=== PATIENT | female | born 1950 | race Caucasian/White ===

== ENCOUNTER 2020-12-22 20:09 | Inpatient (IN) | payer MEDICARE, OTHER ==
[~2020-12-22] VITALS: Ht 157.5 cm; Wt 81.6 kg
[2020-12-22 20:24] LABS: BASOPHILS # (AUTO) 0.1 K/uL (0.0-0.2); BASOPHILS % (AUTO) 1.4 % (0.0-2.0); EOSINOPHILS % (AUTO) 2.2 % (0.0-6.0); HEMATOCRIT 41 % (33-45); HEMOGLOBIN 14.3 g/dL (11.5-14.8); LYMPHOCYTES # (AUTO) 3.2 K/uL (0.8-4.8); LYMPHOCYTES % (AUTO) 32.2 % (20.0-44.0); MEAN CORPUSCULAR HGB CONC 35 g/dl (31.0-36.0); MEAN CORPUSCULAR VOLUME 88 fL (82-100); MONOCYTES # (AUTO) 0.8 K/uL (0.1-1.30); MONOCYTES % (AUTO) 7.9 % (2.0-12.0); NEUTROPHILS # (AUTO) 5.5 K/uL (1.8-8.9); NEUTROPHILS % (AUTO) 56.3 % (43.0-81.0); PLATELET COUNT (AUTO) 140 K/uL (150-450); RED BLOOD CELL COUNT(AUTO) 4.67 MIL/uL (4.0-5.2); WHITE BLOOD COUNT (AUTO) 9.8 K/uL (4.3-11.0)
[2020-12-22] MEDS ORDERED: DILTIAZEM HCL 25 MG IV ONE (20:28)
[2020-12-22] MEDS ORDERED: DILTIAZEM HCL 50 MG IV IV ONE (20:30)
[2020-12-22 20:35] LABS: CARBON DIOXIDE 26 mmol/L (21-32); CHLORIDE 107 mmol/L (98-107); CREATININE 1.1 mg/dL (0.6-1.3); GLUCOSE 186 mg/dL (74-106); POTASSIUM 4.2 mmol/L (3.5-5.1); SODIUM SERUM 145 mmol/L (136-145); UREA NITROGEN, BLOOD 29 mg/dL (7-18)
--- NOTE | 2020-12-22 20:35 | NUR ---
YENIFER FROM HOME TO ER BED 5. AAOX4. NOT IN RESP DISTRESS, BREATHING EVEN AND UNLABORED. AMBULATORY. BROUGHT IN PALPITATION. DENIES CP. PT VERBALIZES THAT SHE IS AWAITING FOR IMPLANTABLE DEVICE BUT DOES NOT KNOW WHAT EXACTLY IN THE NEXT FEW WEEKS. PT WAS NOTED AFIB RVR IN THE 130-140. PT IS ON MONITOR. EKG WAS AT THE BEDSIDE. WAS A THE BEDSIDE FOR EVAL. ORDERS RECEIVED, NOTED AND CARRIED OUT. IV LINE PRESENT ON THE L HAND 20G. BLOOD DRAWN. WILL CONTINUE TO MONITOR
--- NOTE | 2020-12-22 21:07 | NUR ---
made aware of hr 114. Continue to monitor/
--- NOTE | 2020-12-22 21:07 | NUR ---
Ferny bradley in [facility] - 12/22/20 at 2110 by [facility] xray at bedside
--- NOTE | 2020-12-22 21:55 | NUR ---
REPROT GIVEN TO SHARATH FLAHERTY FOR MYAUR
--- NOTE | 2020-12-22 22:05 | NUR ---
RN OPENING NOTE ADMIT 70 YEAR OLD CHINESE FEMALE TO [facility] UNIT ON TELE MONITORING,ALERT ORIENTED X4 CHINESE SPEAKING ON 2 L OXYGEN VIA NASAL CANNULA,O2: 97% IV SITE IN ON LEFT HAND #20 G INTACT PATENT AMBULATORY CONTINENT TO BOWEL/BLADDER SAFETY MEASURE IMPLEMENT BED IN LOW POSITION AND LOCKED,CALL LIGHT WITHIN REACH CONTINUE TO MONITOR.
--- NOTE | 2020-12-22 22:08 | NUR ---
PT TRANSPORTED TO UNIT ON GURNEY WITH EMT AND RN AT BEDSIDE W/ ACLS PROTOCOL. NAD NOTED DURING TRANSPORT.
--- NOTE | 2020-12-22 22:08 | NUR ---
PT AMBULATED WITH MIN ASSIST FROM GURNEY TO BED ON STEADY GAIT
[2020-12-22] MEDS ORDERED: ACETAMINOPHEN 325 MG TABLET PO PRN (23:00)
[2020-12-22] MEDS ORDERED: ONDANSETRON HCL/PF 4 MG/2 ML VIAL IVP PRN (23:00)
[2020-12-22] MEDS ORDERED: ZOLPIDEM TARTRATE 5 MG TABLET PO PRN (23:00)
[2020-12-22] MEDS ORDERED: DEXTROSE 50%-WATER 50 ML DISP.SYRIN IV PRN (23:00)
[2020-12-22] MEDS ORDERED: Z GUARD REMEDY 2 OZ OINT TP PRN (23:00)
[2020-12-23] VITALS (7 sets, daily range): BP systolic 139–177; BP diastolic 63–97
--- NOTE | 2020-12-23 00:30 | NUR ---
RN NOTE REPORT GIVEN TO CYRUS EARLY FOR CONTINUATION OF CARE.
--- NOTE | 2020-12-23 00:40 | NUR ---
SVP MARKETING NOTES RECEIVED ENDORSEMENT FROM REYNOLD EARLY PT IN STABLE CONDITION. WILL CONTINUE TO MONITOR.
[2020-12-23 06:53] LABS: BASOPHILS % (AUTO) 0.5 % (0.0-2.0); EOSINOPHILS % (AUTO) 3.3 % (0.0-6.0); HEMATOCRIT 38 % (33-45); LYMPHOCYTES # (AUTO) 2.7 K/uL (0.8-4.8); LYMPHOCYTES % (AUTO) 35.5 % (20.0-44.0); MEAN CORPUSCULAR HGB CONC 34 g/dl (31.0-36.0); MEAN CORPUSCULAR VOLUME 89 fL (82-100); MONOCYTES # (AUTO) 0.7 K/uL (0.1-1.30); MONOCYTES % (AUTO) 8.7 % (2.0-12.0); NEUTROPHILS # (AUTO) 3.9 K/uL (1.8-8.9); PLATELET COUNT (AUTO) 120 K/uL (150-450); RED BLOOD CELL COUNT(AUTO) 4.25 MIL/uL (4.0-5.2); WHITE BLOOD COUNT (AUTO) 7.6 K/uL (4.3-11.0)
[2020-12-23 07:42] LABS: ALBUMIN 3.3 g/dL (3.4-5.0); BILIRUBIN,TOTAL 0.4 mg/dL (0.2-1.0); CALCIUM, SERUM 8.5 mg/dL (8.5-10.1); MAGNESIUM 1.6 mg/dL (1.8-2.4); PHOSPHORUS 3.6 mg/dL (2.5-4.9); POTASSIUM 3.4 mmol/L (3.5-5.1); TOTAL PROTEIN, SERUM 6.2 g/dL (6.4-8.2)
--- NOTE | 2020-12-23 07:44 | NUR ---
LABORATORY AIDE NOTES ALERT ORIENTED X4 WEST SPEAKING ON 2 L OXYGEN VIA NASAL CANNULA,O2: 97% IV SITE IN ON LEFT HAND #20 G INTACT PATENT AMBULATORY CONTINENT TO BOWEL/BLADDER SAFETY MEASURE IMPLEMENT BED IN LOW POSITION AND LOCKED,CALL LIGHT WITHIN ENDORSE CARE TO DAY SHIFT NURSE.
[2020-12-23 07:55] LABS: THYROID STIMULATING HORMONE 1.474 uIU/mL (0.358-3.74)
[2020-12-23] MEDS: BLOOD SUGAR DIAGNOSTIC 1 EACH STRIP IN SCH ×4 (08:18→21:52)
[2020-12-23] MEDS: INSULIN LISPRO/ASPART 100 UNIT/ML CARTRIDGE SQ SCH ×3 (08:20→18:49)
[2020-12-23] MEDS: INSULIN REGULAR, HUMAN 100 UNIT/ML 3 ML VIAL SQ PRN ×3 (08:22→22:01)
[2020-12-23] MEDS: METOPROLOL TARTRATE 50 MG TABLET PO SCH ×2 (08:28→21:47)
[2020-12-23] MEDS: ASPIRIN EC 81 MG TABLET.DR PO SCH (08:28)
[2020-12-23] MEDS: LOSARTAN POTASSIUM 25 MG TABLET PO SCH (08:28)
[2020-12-23] MEDS: PANTOPRAZOLE 40 MG TABLET.DR PO SCH (08:28)
[2020-12-23] MEDS: Magnesium 1GM/D5W 100ML PREMIX 100 ML IV SCH ×2 (09:54→11:16)
[2020-12-23] MEDS ORDERED: POTASSIUM CHLORIDE 20 MEQ TAB.PRT.SR PO SCH (10:00)
[2020-12-23] MEDS ORDERED: METF-866 PO (10:56)
[2020-12-23] MEDS ORDERED: JENTADUETO PO (10:56)
[2020-12-23] MEDS ORDERED: HYDR-4076 PO (10:56)
[2020-12-23] MEDS ORDERED: AMLO-213 PO (10:56)
[2020-12-23] MEDS ORDERED: ASPI-1420 PO (10:56)
[2020-12-23] MEDS ORDERED: CLON0.1T PO (10:56)
[2020-12-23] MEDS ORDERED: COLC0.6T67 PO (10:56)
[2020-12-23] MEDS ORDERED: ZOLP10TA2 PO (10:56)
[2020-12-23] MEDS ORDERED: INSU100I24 SQ (10:56)
[2020-12-23] MEDS ORDERED: HYDR12.55 PO (10:56)
[2020-12-23] MEDS ORDERED: ALPR0.5T8 PO (10:56)
[2020-12-23] MEDS ORDERED: IBUP-1955 PO (10:56)
[2020-12-23] MEDS ORDERED: PRAV20TA4 PO (10:56)
[2020-12-23] MEDS ORDERED: ERGO500093 PO (10:56)
[2020-12-23] MEDS ORDERED: METO25TA4 PO (10:56)
[2020-12-23] MEDS ORDERED: ICOS1CAP PO (10:56)
[2020-12-23] MEDS ORDERED: EZET10TA32 PO (10:56)
[2020-12-23] MEDS ORDERED: GLIM2TAB31 PO (10:56)
[2020-12-23] MEDS ORDERED: OMEP1PAC7 PO (10:56)
[2020-12-23] MEDS ORDERED: FLUO120C4 TP (10:56)
[2020-12-23] MEDS ORDERED: BENA1TAB18 PO (10:56)
[2020-12-23] MEDS ORDERED: LOSA100T31 PO (10:56)
[2020-12-23] MEDS ORDERED: TRAM50TA2 PO (10:56)
[2020-12-23] MEDS ORDERED: RIVAROXABAN 10 MG TABLET PO SCH (17:00)
--- NOTE | 2020-12-23 19:30 | NUR ---
RN NOTE RECEIVED PATIENT IN BED, AO X 4, IN NO S/SX OF ACUTE DISTRESS AT THIS TIME. BREATHING EVEN AND UNLABORED, SATURATION AT 96% ON ROOM AIR, SR ON THE MONITOR, HR IS 64. NOTED IV SITE AT LHAND 20G, PATENT AND FLUSHING WELL, NO S/S OF INFECTION OR INFILTRATION. SAFETY MEASURES IMPLEMENTED. PATIENT BED ALARM IS ON. HEAD OF BED ELEVATED. BED IS LOCKED, IN LOWEST POSITION AND SIDE RAILS UP. CALL LIGHT WITHIN REACH OF THE PATIENT. WILL CONTINUE TO MONITOR AND REASSESS FOR ANY CHANGES.
[2020-12-23] MEDS ORDERED: ATORVASTATIN 10 MG TABLET PO SCH (22:00)
[2020-12-24] VITALS: BP 130/65
[2020-12-24 00:09] VITALS: BP 130/65
[2020-12-24 04:00] VITALS: BP 146/81
[2020-12-24 04:26] VITALS: BP 146/81
[2020-12-24] MEDS: BLOOD SUGAR DIAGNOSTIC 1 EACH STRIP IN SCH (07:43)
[2020-12-24 07:44] LABS: CALCIUM, SERUM 8.3 mg/dL (8.5-10.1); CREATININE 0.9 mg/dL (0.6-1.3); MAGNESIUM 1.9 mg/dL (1.8-2.4); POTASSIUM 3.6 mmol/L (3.5-5.1)
--- NOTE | 2020-12-24 07:46 | NUR ---
RN OPENING NOTES; RECEIVED PT IN BED, IN SUPINE POS. A/OX4, NO C/O PAIN, NO DISTRESS NOTED. PT 02 SAT 100% IN ROOM AIR. BREATHING EVEN AND UNLABORED. NOTED IV SITE AT L HAND 20G, PATENT AND FLUSHING WELL, NO S/S OF INFECTION OR INFILTRATION. SAFETY MEASURES IMPLEMENTED. PATIENT BED ALARM IS ON. LOCKED, AND IN LOWEST POSITION. WILL CONTINUE TO MONITOR.
[2020-12-24 08:00] VITALS: BP 155/78
[2020-12-24] MEDS: ASPIRIN EC 81 MG TABLET.DR PO SCH (08:04)
[2020-12-24] MEDS: LOSARTAN POTASSIUM 25 MG TABLET PO SCH (08:04)
[2020-12-24 08:05] VITALS: BP 155/78
[2020-12-24] MEDS: METOPROLOL TARTRATE 50 MG TABLET PO SCH (08:05)
[2020-12-24] MEDS: PANTOPRAZOLE 40 MG TABLET.DR PO SCH (08:05)
[2020-12-24] MEDS: INSULIN LISPRO/ASPART 100 UNIT/ML CARTRIDGE SQ SCH (08:06)
[2020-12-24] MEDS: INSULIN REGULAR, HUMAN 100 UNIT/ML 3 ML VIAL SQ PRN (08:08)
--- NOTE | 2020-12-24 11:10 | NUR ---
RN NOTE DR. BETH SPOKE WITH PATIENT'S DAUGHTER AND EDUCATED HER ON PATIENT'S SITUATION, NEW PRESCRIPTIONS, AND FOLLOWING UP WITH HER PRIMARY CARE PROVIDER.
--- NOTE | 2020-12-24 12:16 | NUR ---
PT IN STABLE CONDITION. NO C/O PAIN, OR DISTRESS NOTED. PT AMBULATORY A/OX3. V/S WITHIN NORMAL LIMITS. DISCHARGE TEACHING DONE, PT STATES UNDERSTANDING. PT DISCHARGED TO HOME. PICKED UP BY HER SON, ASSISTED BY JOSS CASTANEDA.
== END 2020-12-24 12:09 | disposition home health service (06) | DRG 308 ==
LOC: ER 20:11 → TELE1 21:33
PROVIDERS: ADMIT Nurse Practitioner Acute Care; ATTEND Nurse Practitioner Acute Care
DX: I48.91 Unspecified atrial fibrillation (principal); N17.0 Acute kidney failure with tubular necrosis; I50.31 Acute diastolic (congestive) heart failure; D68.59 Other primary thrombophilia; E44.0 Moderate protein-calorie malnutrition; E11.9 Type 2 diabetes mellitus without complications; M19.90 Unspecified osteoarthritis, unspecified site; F41.9 Anxiety disorder, unspecified; E87.6 Hypokalemia; E83.42 Hypomagnesemia; E78.5 Hyperlipidemia, unspecified; E66.9 Obesity, unspecified; Z68.33 Body mass index [BMI] 33.0-33.9, adult; I35.1 Nonrheumatic aortic (valve) insufficiency; I11.0 Hypertensive heart disease with heart failure; Z20.822 Contact with and (suspected) exposure to COVID-19
CPT/HCPCS: 36415; 71045-TC; 80048-TC; 80053-TC; 80061-TC; 82962-TC; 83735-TC; 84100-TC; 84443-TC; 84484-TC; 85025-TC; 87081-TC; 93307-TC; G0378; J1815; J3475; J3490

== ENCOUNTER 2022-07-26 18:22 | Inpatient (IN) | payer MEDICARE, OTHER ==
[~2022-07-26] VITALS: Ht 152.4 cm; Wt 79.8 kg
[~2022-07-26 18:22] MED LIST: ALPR0.5T8 PO; AMLO-213 PO; ASPI-1420 PO; BENA1TAB18 PO; CLON0.1T PO; COLC0.6T67 PO; ERGO500093 PO; EZET10TA32 PO; FLUO120C4 TP; GLIM2TAB31 PO; HYDR-4076 PO; HYDR12.55 PO; IBUP-1955 PO; ICOS1CAP PO; INSU100I24 SQ; JENTADUETO PO; LOSA100T31 PO; METF-866 PO; METO25TA4 PO; OMEP1PAC7 PO; PRAV20TA4 PO; TRAM50TA2 PO; ZOLP10TA2 PO
--- NOTE | 2022-07-26 18:37 | NUR ---
[id number] home c/o abdominal discomfort, nausea and vomiting x today. PLACED IN BED, AAOX4, BREATHING UNLABORED SATURATING AT 94%RA.
--- NOTE | 2022-07-26 19:03 | NUR ---
[facility] [phone]
--- NOTE | 2022-07-26 19:07 | NUR ---
[facility] #[phone]
[2022-07-26] MEDS ORDERED: MORPHINE SULFATE INJ 2 MG/ML DISP.SYRIN ONE (19:13)
[2022-07-26] MEDS ORDERED: ONDANSETRON HCL/PF 4 MG/2 ML VIAL ONE (19:13)
--- NOTE | 2022-07-26 19:14 | NUR ---
[facility] [phone] FAX [phone].
--- NOTE | 2022-07-26 19:25 | NUR ---
X-RAY TYECH AT BEDSIDE
[2022-07-26] MEDS ORDERED: ONDANSETRON HCL/PF 4 MG/2 ML VIAL IVP ONE (19:30)
[2022-07-26] MEDS ORDERED: IV NS 0.9% 1,000 ML BAG IV ONE (19:30)
[2022-07-26] MEDS ORDERED: MORPHINE SULFATE INJ 2 MG/ML DISP.SYRIN IV ONE (19:30)
[2022-07-26 19:51] LABS: BASOPHILS % (AUTO) 0.1 % (0.0-2.0); HEMATOCRIT 36 % (33-45); HEMOGLOBIN 12.1 g/dL (11.5-14.8); LYMPHOCYTES # (AUTO) 1.2 K/uL (0.8-4.8); LYMPHOCYTES % (AUTO) 7.4 % (20.0-44.0); MEAN CORPUSCULAR HGB CONC 33 g/dl (31.0-36.0); MEAN CORPUSCULAR VOLUME 86 fL (82-100); MONOCYTES # (AUTO) 1.6 K/uL (0.1-1.30); MONOCYTES % (AUTO) 9.8 % (2.0-12.0); NEUTROPHILS # (AUTO) 13.4 K/uL (1.8-8.9); NEUTROPHILS % (AUTO) 82.7 % (43.0-81.0); PLATELET COUNT (AUTO) 149 K/uL (150-450); RED BLOOD CELL COUNT(AUTO) 4.22 MIL/uL (4.0-5.2); WHITE BLOOD COUNT (AUTO) 16.2 K/uL (4.3-11.0)
[2022-07-26 20:26] LABS: ALBUMIN 3.8 g/dL (3.4-5.0); BILIRUBIN,DIRECT 0.2 mg/dL (0.0-0.2); BILIRUBIN,TOTAL 0.6 mg/dL (0.2-1.0); CALCIUM, SERUM 9.3 mg/dL (8.5-10.1); CREATININE 1.3 mg/dL (0.6-1.3); POTASSIUM 3.5 mmol/L (3.5-5.1); TOTAL PROTEIN, SERUM 7.4 g/dL (6.4-8.2)
[2022-07-26] MEDS ORDERED: CEFEPIME 1 GM in IV D5W 50 ML IV ONE (20:30)
[2022-07-26] MEDS ORDERED: VANCOMYCIN 1 GM in IV D5W 250 ML IV ONE (20:30)
--- NOTE | 2022-07-26 20:31 | NUR ---
SWAB FOR COVID19 SENT TO LAB
--- NOTE | 2022-07-26 20:41 | NUR ---
URINE SAMPLE SENT TO LAB
[2022-07-26] MEDS ORDERED: CEFEPIME 1 GM VIAL ONE (21:06)
[2022-07-26] MEDS ORDERED: VANCOMYCIN 1 GM VIAL ONE (21:06)
--- NOTE | 2022-07-26 21:06 | NUR ---
DR. REJI FUENTES ON PHONE CALL WITH DR. LEONG ADMITTING
[2022-07-26 21:41] LABS: BILIRUBIN,URINE NEGATIVE (NEGATIVE); COLOR,URINE YELLOW (YELLOW); LEUKOCYTE ESTERASE ,URINE TRACE (NEGATIVE); NITRITE, URINE POSITIVE (NEGATIVE); PH,URINE 5.5 (5.0-8.0); PROTEIN,URINE TRACE mg/dl (NEGATIVE); UGLUCOSE NEGATIVE (NEGATIVE); UROBILINOGEN,URINE 0.2 EU/dL (0.2)
[2022-07-26] MEDS ORDERED: CLONIDINE HCL 0.1 MG TABLET PO PRN (22:00)
[2022-07-26] MEDS ORDERED: IBUPROFEN 600 MG TABLET PO PRN (22:00)
[2022-07-26] MEDS ORDERED: MAG HYDROX/AL HYDROX/SIMETH 30 ML UDC PO PRN (22:30)
[2022-07-26] MEDS ORDERED: ACETAMINOPHEN 325 MG TABLET PO PRN (22:30)
[2022-07-26] MEDS ORDERED: DEXTROSE 50%-WATER 50 ML DISP.SYRIN IV PRN (22:30)
[2022-07-26] MEDS ORDERED: ONDANSETRON HCL/PF 4 MG/2 ML VIAL IVP PRN (22:30)
[2022-07-26] MEDS ORDERED: MAGNESIUM HYDROXIDE 30 ML UDC PO PRN (22:30)
[2022-07-26] MEDS ORDERED: Z GUARD REMEDY 4 OZ OINT TP PRN (22:30)
[2022-07-26 23:07] LABS: WBC,URINE 21-50 /HPF (0-3)
[2022-07-26 23:08] LABS: BACTERIA,URINE Many /HPF (None Seen); SQUAMOUS EPITHELIAL CELL,UR Few /HPF (None Seen)
--- NOTE | 2022-07-26 23:11 | NUR ---
REPORT GIVEN TO SHARATH MOURA
[2022-07-26 23:20] VITALS: BP 129/53
--- NOTE | 2022-07-26 23:20 | NUR ---
PATIENT ADMITTED TO ROOM 306-2 REPORT GIVEN TO MARTELL EARLY
--- NOTE | 2022-07-26 23:20 | NUR ---
RN NOTES; RECEIVED PT FROM ER WITH RERE,AWAKED AOX4 ABLE TO MAKE NEEDS KNOWN,ON 2L O2 VIA NC JOSH WELL SAT 98%,NO SOB/DISTRESS NOTED,NO COMPLAIN OF PAIN/DISCOMFORT AT THIS TIME,IV SITE ON LAC 20G INTACT AND PATENT,BELONGING AND INITIAL ASSESSMENT DONE AND RECORDED,PT WAS ORIENT THE RM AND VERBALIZE UNDERSTANDING,SAFETY MEASURE IN PLACE,CALL LIGHT WITHIN REACH,WILL CONTINUE TO MONITOR.
[2022-07-27] MEDS: ENOXAPARIN SODIUM 30 MG/0.3 ML DISP.SYRIN SQ SCH ×2 (00:14→20:25)
[2022-07-27] MEDS ORDERED: VANCOMYCIN 1 GM VIAL ONE (00:15)
[2022-07-27] MEDS: IV 1/2NS 1000 ML 1,000 ML IV PRN (00:20)
[2022-07-27 06:05] LABS: BASOPHILS % (AUTO) 0.3 % (0.0-2.0); EOSINOPHILS % (AUTO) 0.2 % (0.0-6.0); HEMATOCRIT 32 % (33-45); HEMOGLOBIN 10.9 g/dL (11.5-14.8); LYMPHOCYTES # (AUTO) 1.8 K/uL (0.8-4.8); LYMPHOCYTES % (AUTO) 16.2 % (20.0-44.0); MEAN CORPUSCULAR HGB CONC 34 g/dl (31.0-36.0); MEAN CORPUSCULAR VOLUME 88 fL (82-100); MONOCYTES # (AUTO) 1.2 K/uL (0.1-1.30); MONOCYTES % (AUTO) 10.8 % (2.0-12.0); NEUTROPHILS # (AUTO) 7.9 K/uL (1.8-8.9); NEUTROPHILS % (AUTO) 72.5 % (43.0-81.0); PLATELET COUNT (AUTO) 124 K/uL (150-450); WHITE BLOOD COUNT (AUTO) 10.9 K/uL (4.3-11.0)
--- NOTE | 2022-07-27 06:26 | NUR ---
RN CLOSING NOTES; PATIENT IN BED AAOX4,ABLE TO MAKE NEEDS KNOWN,ON 2L O2 VIA NC JOSH WELL SAT 99%,NO SOB/DISTRESS NOTED,NO COMPLAIN OF PAIN/DISCOMFORT DURING SHIFT,DUE MEDS GIVEN ORDER,ALL NEEDS ATTENDED,KEPT PT CLEANED AND DRY AT ALL TIME,IV SITE ON LAC 20G WITH 1/2NS 75ML/HR INFUSING WELL,SAFETY MEASURE IN PLACE,CALL LIGHT WITHIN REACH,WILL ENDORSED TO NEXT SHIFT.
[2022-07-27] MEDS: *INSULIN REGULAR(HUMULIN R)HUM 100 UNIT/ML VIAL SQ PRN ×2 (06:39→22:29)
[2022-07-27] MEDS: BLOOD SUGAR DIAGNOSTIC 1 EACH STRIP VI SCH ×4 (06:47→22:26)
[2022-07-27 07:00] LABS: CALCIUM, SERUM 8.3 mg/dL (8.5-10.1); CARBON DIOXIDE 29 mmol/L (21-32); CHLORIDE 103 mmol/L (98-107); CREATININE 1.2 mg/dL (0.6-1.3); GLUCOSE 175 mg/dL (74-106); POTASSIUM 3.9 mmol/L (3.5-5.1); SODIUM SERUM 138 mmol/L (136-145); UREA NITROGEN, BLOOD 22 mg/dL (7-18)
[2022-07-27 07:01] LABS: MAGNESIUM 1.8 mg/dL (1.8-2.4); PHOSPHORUS 3.6 mg/dL (2.5-4.9)
--- NOTE | 2022-07-27 07:23 | NUR ---
RN MS NOTES PT IN BED, ASLEEP, RESPIRATIONS NORMAL AND UNLABORED, NO SIGN OF PAIN OR DISTRESS, IV FLUIDS INFUSING WELL, CALL LIGHT WITHIN REACH.
[2022-07-27 08:00] VITALS: BP 114/54
[2022-07-27] MEDS: ASPIRIN EC 81 MG TABLET.DR PO SCH (08:18)
[2022-07-27] MEDS: INSULIN GLARGINE, 100 UNIT/ML CARTRIDGE SQ SCH ×2 (08:28→20:42)
[2022-07-27] MEDS ORDERED: Medication Not On Formulary EA (Icosapent Ethyl (Vascepa) 2 GM) PO SCH (09:00)
[2022-07-27] MEDS: LOSARTAN POTASSIUM 50 MG TABLET PO SCH (09:00)
[2022-07-27] MEDS: AMLODIPINE BESYLATE 10 MG TABLET PO SCH (09:00)
[2022-07-27] MEDS: METOPROLOL SUCCINATE 25 MG TAB.SR.24H PO SCH (09:00)
[2022-07-27] MEDS: hydrALAZINE HCL 25 MG TABLET PO SCH ×3 (09:00→16:10)
[2022-07-27] MEDS: CEFEPIME 2 GM in IV D5W 100 ML IV SCH ×2 (09:33→20:08)
--- NOTE | 2022-07-27 10:50 | NUR ---
WOUND CARE CONSULT: PT PRESENTS WITH RT UPPER BACK SURGICAL WOUND, PRESENT ON ADMISSION. DR RUSLAN CAROLINA CALLED FOR SURGICAL CONSULT. DISCUSSED SKIN PROTECTION AND WOUND CARE RECOMMENDATIONS WITH NURSING STAFF. MD IN AGREEMENT WITH PLAN OF CARE.
[2022-07-27] MEDS: COLCHICINE 0.6 MG TABLET PO SCH (11:00)
[2022-07-27] MEDS: INSULIN REGULAR, HUMAN 100 UNIT/ML 3 ML VIAL SQ PRN ×2 (12:33→17:03)
[2022-07-27 16:06] VITALS: BP 128/53
--- NOTE | 2022-07-27 18:12 | NUR ---
RN MS NOTES PT IN BED, AWAKE, ALERT TO SELF, WITH CONFUSION, NO SIGN OF PAIN, NOT IN DISTRESS, IV FLUIDS INFUSING WELL, DUE MEDS GIVEN ORDERED, PM CARE PROVIDED.
--- NOTE | 2022-07-27 19:17 | NUR ---
MS RN OPENING NOTES RECEIVED PATIENT AWAKE IN BED. PATIENT IS A/O TIMES 4. KENYAN SPEAKER. ABLE TO MAKE NEEDS KNOWN. NO PAIN NOTED. NO SOB NOTED. NO DISTRESS NOTED. RIGHT SHOULDER INCISION DRESSING INTACT AND PATENT. IV SITE NOTED ON THE LAC NGOC # 20 INTACT RUNNING 1/2 NS AT 75 ML/HR. BED REST . ALL SAFETY MEASURES IN PLACE. BED LOCKED IN THE LOWEST POSITION. CALL LIGHT AND TABLE IN EASY REACH. SIDE RAILS UP TIMES 2. WILL CONTINUE TO MONITOR CLOSELY.
[2022-07-27] MEDS: TRAMADOL HCL 50 MG TABLET PO PRN (20:24)
[2022-07-27 20:26] VITALS: BP 135/57
[2022-07-27] MEDS: VANCOMYCIN 1 GM in IV D5W 250 ML IV SCH (21:48)
[2022-07-28 05:51] LABS: BASOPHILS % (AUTO) 0.5 % (0.0-2.0); EOSINOPHILS % (AUTO) 1.2 % (0.0-6.0); HEMATOCRIT 33 % (33-45); LYMPHOCYTES # (AUTO) 1.6 K/uL (0.8-4.8); LYMPHOCYTES % (AUTO) 26.3 % (20.0-44.0); MEAN CORPUSCULAR HGB CONC 34 g/dl (31.0-36.0); MEAN CORPUSCULAR VOLUME 87 fL (82-100); MONOCYTES # (AUTO) 0.9 K/uL (0.1-1.30); MONOCYTES % (AUTO) 14.7 % (2.0-12.0); NEUTROPHILS # (AUTO) 3.6 K/uL (1.8-8.9); NEUTROPHILS % (AUTO) 57.3 % (43.0-81.0); PLATELET COUNT (AUTO) 134 K/uL (150-450); RED BLOOD CELL COUNT(AUTO) 3.76 MIL/uL (4.0-5.2); WHITE BLOOD COUNT (AUTO) 6.2 K/uL (4.3-11.0)
[2022-07-28] MEDS: BLOOD SUGAR DIAGNOSTIC 1 EACH STRIP VI SCH ×4 (06:07→22:07)
[2022-07-28 06:20] LABS: CALCIUM, SERUM 8.4 mg/dL (8.5-10.1); CARBON DIOXIDE 27 mmol/L (21-32); CHLORIDE 106 mmol/L (98-107); GLUCOSE 94 mg/dL (74-106); PHOSPHORUS 2.6 mg/dL (2.5-4.9); POTASSIUM 3.6 mmol/L (3.5-5.1); SODIUM SERUM 139 mmol/L (136-145); UREA NITROGEN, BLOOD 21 mg/dL (7-18)
--- NOTE | 2022-07-28 06:22 | NUR ---
MS RN CLOSING NOTES PATIENT AWAKE IN BED. PATIENT IS A/O TIMES 4. KAZAKH SPEAKER. ABLE TO MAKE NEEDS KNOWN. NO PAIN NOTED. NO SOB NOTED. NO DISTRESS NOTED. RIGHT SHOULDER INCISION DRESSING INTACT AND PATENT. IV SITE NOTED ON THE LAC NGOC # 20 INTACT RUNNING 1/2 NS AT 75 ML/HR. ALL DUE MEDS GIVEN ORDERED. AMBULATES WITH SUPERVISION. CONTINENT . ALL SAFETY MEASURES IN PLACE. BED LOCKED IN THE LOWEST POSITION. CALL LIGHT AND TABLE IN EASY REACH. SIDE RAILS UP TIMES 2. WILL ENDORSE FOR MAYUR.
--- NOTE | 2022-07-28 06:36 | NUR ---
RN NOTES: PT STILL NOT FEELING GOOD, SHE SAID SHE'S ANXIOUS. AFTER 20MINS OF GIVING HYDRALAZINE 25MG PO. PER PT SHE'S TAKING XANAX 1/2 TAB BUT CAN'T REMEMBER THE DOSE. INFORMED DR LENTZ ABOUT THE SITUATION. ORDERED XANAX 0.25 MG PO. ORDERS NOTED AND CARRIED OUT.
--- NOTE | 2022-07-28 07:00 | NUR ---
MS RN OPENING NOTES: RECEIVED PATIENT IN BED, ASLEEP, EASILY AWAKENS WITH STIMULI. DANISH SPEAKER. ALERT AND ORIENTED X 4 ABLE TO VERBALIZED NEEDS. NO SOB OR CARDIAC DISTRESS NOTED. ON O2 INHALATION @ 2LPM VIA NC (ON AND OFF/STANDBY) IV ACCESS ON LAC GAUGE 20 PATENT, INTACT AND INFUSING 1/2 NS @75ML/HR. NOTED WITH DRESSING ON RIGHT SCAPULA/BACK. SAFETY MEASURES MAINTAINED: BED LOCKED AND IN LOWEST POSITION, SIDE RAILS UP X 2 CALL LIGHT IN EASY REACH FOR HELP, WILL MONITOR PT ACCORDINGLY.
[2022-07-28 08:00] VITALS: BP 119/57
[2022-07-28] MEDS: COLCHICINE 0.6 MG TABLET PO SCH (08:49)
[2022-07-28] MEDS: CEFEPIME 2 GM in IV D5W 100 ML IV SCH ×2 (08:49→21:41)
[2022-07-28] MEDS: ASPIRIN EC 81 MG TABLET.DR PO SCH (08:50)
[2022-07-28] MEDS: AMLODIPINE BESYLATE 10 MG TABLET PO SCH (08:51)
[2022-07-28] MEDS: METOPROLOL SUCCINATE 25 MG TAB.SR.24H PO SCH (08:51)
[2022-07-28] MEDS: hydrALAZINE HCL 25 MG TABLET PO SCH ×4 (08:52→18:02)
[2022-07-28] MEDS: LOSARTAN POTASSIUM 50 MG TABLET PO SCH (08:52)
[2022-07-28] MEDS: INSULIN GLARGINE, 100 UNIT/ML CARTRIDGE SQ SCH ×2 (09:40→22:18)
--- NOTE | 2022-07-28 11:23 | NUR ---
RN NOTES: DITCHING MACHINE OPERATOR JENNIFER ORDERED PT FOR WOUND DEBRIDEMENT, SECURED CONSENT AND HAD WOUND CULTURE DONE. SENT TO LAB. CHANGED PACKING AND SECURED WITH GAUZE AND MEFILEX.
[2022-07-28] MEDS: INSULIN REGULAR, HUMAN 100 UNIT/ML 3 ML VIAL SQ PRN ×2 (12:00→17:28)
[2022-07-28] MEDS: IV 1/2NS 1000 ML 1,000 ML IV PRN (12:55)
[2022-07-28 16:00] VITALS: BP 118/50
--- NOTE | 2022-07-28 18:00 | NUR ---
RN NOTES: PATIENT HAD EPISODES OF PALPITATION. 1755 -VS TAKEN BP 115/57. HR 110. @1800 BP 136/63, HR 120. @1806 HYDRALAZINE 25 MG/TAB PO GIVEN. WILL MONITOR PT ACCORDINGLY.
[2022-07-28] MEDS ORDERED: ALPRAZOLAM 0.25 MG TABLET PO ONE (19:00)
--- NOTE | 2022-07-28 19:20 | NUR ---
RN NOTES: PATIENT VERBALIZED "I FEEL WAY BETTER NOW, THANK YOU" ENDORSED TO RN OFFICE RN ANI.
--- NOTE | 2022-07-28 19:23 | NUR ---
MS RN CLOSING NOTES: PATIENT IN BED,AWAKE PORTUGUESE SPEAKER. ALERT AND ORIENTED X 4 ABLE TO VERBALIZED NEEDS. NO SOB OR CARDIAC DISTRESS NOTED. ON O2 INHALATION @ 2LPM VIA NC (ON AND OFF/STANDBY) IV ACCESS ON LAC GAUGE 20 PATENT, INTACT AND INFUSING 1/2 NS @75ML/HR. S/P WOUND DEBRIDEMENT ON RIGHT UPPER BACK WITH DRESSING CHANGED ON RIGHT SCAPULA/BACK. ON BLOOD SUGAR MONITORING, NO S/S OF HYPO OR HYPERGLYCEMIA.SAFETY MEASURES MAINTAINED: BED LOCKED AND IN LOWEST POSITION, SIDE RAILS UP X 2 CALL LIGHT IN EASY REACH FOR HELP, WILL MONITOR PT ACCORDINGLY. ENDORSED TO GAS TURBINE MECHANIC RN FOR CONTINUITY OF CARE.
--- NOTE | 2022-07-28 19:30 | NUR ---
MS RN OPENING NOTES RECEIVED PATIENT AWAKE IN BED. PATIENT IS A/O TIMES 4. BANGLADESHI SPEAKER. ABLE TO MAKE NEEDS KNOWN. NO PAIN NOTED. NO SOB NOTED. NO DISTRESS NOTED. S/P DEBRIDEMENT OF THE RIGHT SHOULDER , DRESSING INTACT AND PATENT. IV SITE NOTED ON THE LAC NGOC # 20 INTACT RUNNING 1/2 NS AT 75 ML/HR. ABLE TO AMBULATE WITH SUPERVISION . ALL SAFETY MEASURES IN PLACE. BED LOCKED IN THE LOWEST POSITION. CALL LIGHT AND TABLE IN EASY REACH. SIDE RAILS UP TIMES 2. WILL CONTINUE TO MONITOR CLOSELY.
[2022-07-28 20:38] VITALS: BP 132/65
[2022-07-28] MEDS ORDERED: ENOXAPARIN SODIUM 40 MG/0.4 ML DISP.SYRIN SQ SCH (21:00)
[2022-07-28] MEDS: *INSULIN REGULAR(HUMULIN R)HUM 100 UNIT/ML VIAL SQ PRN (22:20)
[2022-07-28] MEDS: VANCOMYCIN 1 GM in IV D5W 250 ML IV SCH (23:10)
[2022-07-28] MEDS: TRAMADOL HCL 50 MG TABLET PO PRN (23:13)
--- NOTE | 2022-07-28 23:13 | NUR ---
RN NOTES PRN TRAMADOL GIVEN FOR GENERALIZED PAIN PER PATIENT'S REQUEST AT 2313. WILL REASSESS PAIN IN 1 HOUR.
[2022-07-29 05:51] LABS: BASOPHILS % (AUTO) 0.5 % (0.0-2.0); HEMATOCRIT 33 % (33-45); HEMOGLOBIN 11.1 g/dL (11.5-14.8); LYMPHOCYTES # (AUTO) 1.7 K/uL (0.8-4.8); LYMPHOCYTES % (AUTO) 31.1 % (20.0-44.0); MEAN CORPUSCULAR HGB CONC 34 g/dl (31.0-36.0); MEAN CORPUSCULAR VOLUME 87 fL (82-100); MONOCYTES # (AUTO) 0.9 K/uL (0.1-1.30); NEUTROPHILS # (AUTO) 2.7 K/uL (1.8-8.9); NEUTROPHILS % (AUTO) 49.4 % (43.0-81.0); PLATELET COUNT (AUTO) 142 K/uL (150-450); RED BLOOD CELL COUNT(AUTO) 3.79 MIL/uL (4.0-5.2); WHITE BLOOD COUNT (AUTO) 5.5 K/uL (4.3-11.0)
[2022-07-29] MEDS: BLOOD SUGAR DIAGNOSTIC 1 EACH STRIP VI SCH ×2 (05:55→12:14)
[2022-07-29 06:05] LABS: CALCIUM, SERUM 8.4 mg/dL (8.5-10.1); POTASSIUM 3.4 mmol/L (3.5-5.1)
--- NOTE | 2022-07-29 06:19 | NUR ---
MS RN CLOSING NOTES PATIENT AWAKE IN BED. PATIENT IS A/O TIMES 4. JORDANIAN SPEAKER. ABLE TO MAKE NEEDS KNOWN. NO PAIN NOTED. NO SOB NOTED. NO DISTRESS NOTED. RIGHT SHOULDER INCISION DRESSING INTACT AND PATENT. IV SITE NOTED ON THE KATRINA G # 24 INTACT . RUNNING 1/2 NS AT 75 ML/HR. ALL DUE MEDS GIVEN ORDERED. AMBULATES WITH SUPERVISION. CONTINENT . ALL SAFETY MEASURES IN PLACE. BED LOCKED IN THE LOWEST POSITION. CALL LIGHT AND TABLE IN EASY REACH. SIDE RAILS UP TIMES 2. WILL ENDORSE FOR MAYUR.
[2022-07-29 07:00] VITALS: BP_SYST 134; BP_SYST 148; BP_DIAS 58; BP_DIAS 70
--- NOTE | 2022-07-29 07:10 | NUR ---
MS RN OPENING NOTES RECEIVED PATIENT AWAKE IN BED. PATIENT IS A/O X 4. PORTUGUESE SPEAKING WITH SOME LUXEMBOURGISH. ABLE TO MAKE NEEDS KNOWN. NO PAIN NOTED. NO SOB NOTED. NO DISTRESS NOTED. S/P DEBRIDEMENT OF THE RIGHT SHOULDER , DRESSING INTACT AND PATENT. IV SITE NOTED ON THE KATRINA #24 INTACT RUNNING 1/2 NS AT 75 ML/HR. ABLE TO AMBULATE WITH SUPERVISION . ALL SAFETY MEASURES IN PLACE. BED LOCKED IN THE LOWEST POSITION. CALL LIGHT AND TABLE IN EASY REACH. SIDE RAILS UP TIMES 2. WILL CONTINUE TO MONITOR THEPATIENT.
[2022-07-29] MEDS: CEFEPIME 2 GM in IV D5W 100 ML IV SCH ×2 (08:35→08:39)
[2022-07-29] MEDS: METOPROLOL SUCCINATE 25 MG TAB.SR.24H PO SCH (08:36)
[2022-07-29] MEDS: AMLODIPINE BESYLATE 10 MG TABLET PO SCH (08:37)
[2022-07-29] MEDS: hydrALAZINE HCL 25 MG TABLET PO SCH ×2 (08:37→12:18)
[2022-07-29] MEDS: LOSARTAN POTASSIUM 50 MG TABLET PO SCH (08:38)
[2022-07-29] MEDS: ASPIRIN EC 81 MG TABLET.DR PO SCH (08:38)
[2022-07-29] MEDS ORDERED: SULF1TAB48 PO (08:54)
[2022-07-29] MEDS: COLCHICINE 0.6 MG TABLET PO SCH (09:03)
[2022-07-29] MEDS: INSULIN GLARGINE, 100 UNIT/ML CARTRIDGE SQ SCH (09:22)
[2022-07-29] MEDS ORDERED: POTASSIUM CHLORIDE 20 MEQ TAB.PRT.SR PO SCH (10:30)
[2022-07-29 11:14] LABS: EOSINOPHILS % (MANUAL) 2 % (0-4); LYMPHOCYTES % (MANUAL) 42 % (16-48); MONOCYTES % (MANUAL) 10 % (0-11.0); NEUTROPHILS % (MANUAL) 46 (42-76)
[2022-07-29 12:18] VITALS: BP 139/76
[2022-07-29] MEDS: INSULIN REGULAR, HUMAN 100 UNIT/ML 3 ML VIAL SQ PRN (12:21)
--- NOTE | 2022-07-29 13:30 | NUR ---
MS CABLE ENGINEER NOTES PATIENT WAS DISCHARGED TODAY, STABLE, A/O X 4. SERBIAN SPEAKING WITH SOME LUXEMBOURGER. ABLE TO MAKE NEEDS KNOWN. NO PAIN NOTED. NO SOB NOTED. NO DISTRESS NOTED. S/P DEBRIDEMENT OF THE RIGHT SHOULDER WAS DONE TODAY, DRESSING INTACT AND PATENT. IV ON THE KATRINA #24 WAS REMOVED. PATIENT'S BELONGINGS ALL ACCOUNTED FOR. DISCHARGED INSTRUCTIONS WERE DISCUSSED BOTH VERBALLY AND IN WRITING WITH THE PATIENT. ALL SAFETY MEASURES IN PLACE PRIOR TO DISCHARGE. PATIENT WAS PICKED UP BY HER SON, SAMY, PATIENT LEFT 3/F AT 1329 IN A WHEELCHAIR WITH FLAME PLANER AND ACCOMPANIED BY HER SON. CHARGE NURSE AWARE OF THE DISCHARGE
== END 2022-07-29 13:40 | disposition home or self-care (01) | DRG 579 ==
LOC: ER 18:25 → TELE 22:33 → MED 07-27 00:39
PROVIDERS: ADMIT Internal Medicine; ATTEND Nurse Practitioner Acute Care
PROC: 0JB73ZZ Excision of Back Subcutaneous Tissue and Fascia, Percutaneous Approach (ICD-10-PCS; principal; 2022-07-28)
DX: S41.001A Unspecified open wound of right shoulder, initial encounter (principal); E43 Unspecified severe protein-calorie malnutrition; N17.0 Acute kidney failure with tubular necrosis; N39.0 Urinary tract infection, site not specified; D68.69 Other thrombophilia; I48.91 Unspecified atrial fibrillation; E66.9 Obesity, unspecified; E88.09 Other disorders of plasma-protein metabolism, not elsewhere classified; M19.90 Unspecified osteoarthritis, unspecified site; Z95.0 Presence of cardiac pacemaker; Z79.84 Long term (current) use of oral hypoglycemic drugs; I10 Essential (primary) hypertension; E11.9 Type 2 diabetes mellitus without complications; X58.XXXA Exposure to other specified factors, initial encounter; Y93.89 Activity, other specified; Y92.009 Unspecified place in unspecified non-institutional (private) residence as the place of occurrence of the external cause; D72.829 Elevated white blood cell count, unspecified; Z68.34 Body mass index [BMI] 34.0-34.9, adult; R53.81 Other malaise; F32.A Depression, unspecified; F41.9 Anxiety disorder, unspecified
CPT/HCPCS: 36415; 71045-TC; 80048-TC; 80076-TC; 81001; 82962-TC; 83605-TC; 83690-TC; 83735-TC; 84100-TC; 84484-TC; 85025-TC; 85652-TC; 85730-TC; 87040-TC; 87081-TC; 87086-TC; A4223; A6407; C9803; G0378; J0692; J1650; J1815; J2270; J2405; J3370; J3490; J7060